=== PATIENT | male | born 1995 | race Caucasian/White ===

== ENCOUNTER 2017-05-09 12:04 | Emergency (ER) | payer SELFPAY ==
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
== END 2017-05-09 13:16 | disposition home or self-care (01) ==
LOC: JP.ED 12:04
DX: R07.1 Chest pain on breathing (principal)
CPT/HCPCS: 93005; 99285-25

== ENCOUNTER 2018-11-20 20:22 | Emergency (ER) | payer MEDICAID ==
[2018-11-20] MEDS ORDERED: fentaNYL 100 MCG/2 ML SDV IVPUSH ONE ×2 (20:32→21:06)
[2018-11-20] MEDS ORDERED: Sodium Chloride 0.9% 1,000 ML IV ONE (20:33)
[2018-11-20] MEDS ORDERED: Ondansetron 4 MG/2 ML SDV IVPUSH PRN (20:33)
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
--- NOTE | 2018-11-20 21:38 | CRLCR ---
Indication: Injury Technique: Left ankle 1 views Comparison: None Findings: Lateral view of the ankle submitted. Displaced transversely oriented fracture of the distal tibial metaphysis. Displaced and comminuted fracture of the distal fibular diaphysis. Intact talus and calcaneus. Impression: Displaced fractures of the distal tibial diaphysis and fibular diaphysis. Dictated by Pavel Huerta MD @ Nov 20 2018 9:36PM Signed by Dr. Pavel Huerta @ Nov 20 2018 9:37PM
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
== END 2018-11-20 22:09 ==
LOC: JP.ED 20:22
DX: S82.302A Unspecified fracture of lower end of left tibia, initial encounter for closed fracture (principal); S82.832A Other fracture of upper and lower end of left fibula, initial encounter for closed fracture; V86.56XA Driver of dirt bike or motor/cross bike injured in nontraffic accident, initial encounter
CPT/HCPCS: 36415; 73590; 73600; 80048; 85025; 86850; 86900; 86901; 96361; 96374; 96375; 96376; 99284; J2405; J3010; J7030